=== PATIENT | female | born 1960 ===

== ENCOUNTER 2017-11-27 13:01 | Emergency (ER) | payer MEDICAID, OTHER ==
[2017-11-27 13:13] VITALS: BP 145/101; PULSE 95; RESP 20; TEMP 97.9; O2SAT 96
--- NOTE | 2017-11-27 13:49 | C.PDOC ---
History Of Present Illness Patient is a 57 y/o female who presents to the ED with a complaint of blisters to right sided chest wall and right sided abdomen for the last 3 days. Patient notes blisters cause burning sensation. No other physical complaints at this time. Time Seen by Provider: 11/27/17 13:18 Chief Complaint (Nursing): Abnormal Skin Integrity History Per: Patient History/Exam Limitations: no limitations Onset/Duration Of Symptoms: Days (3) Current Symptoms Are (Timing): Still Present Location Of Injury: Right: Abdomen, Chest Recent travel outside of the [place]: No Past Medical History Reviewed: Historical Data, Nursing Documentation, Vital Signs Vital Signs: Last Vital Signs Temp 97.9 F 11/27/17 13:10 Pulse 95 H 11/27/17 13:10 Resp 20 11/27/17 13:10 BP 145/101 H 11/27/17 13:10 Pulse Ox 96 11/27/17 13:49 - Medical History PMH: HTN, Hypercholesterolemia, Hypothyroidism Surgical History: Appendectomy Family History: States: No Known Family Hx - Social History Hx Tobacco Use: Yes (heavy smoker) Hx Alcohol Use: Yes Hx Substance Use: No - Immunization History Hx Tetanus Toxoid Vaccination: No Hx Influenza Vaccination: No Hx Pneumococcal Vaccination: No Review Of Systems Skin: Positive for: Other (blisters to right sided chest and right sided abdomen ) Physical Exam - Physical Exam Appears: No Acute Distress Skin: Other (clusters of blisters on erythamatous base, not crossing midline, on right side only) Oral Mucosa: Moist Chest: Symmetrical, No Deformity Cardiovascular: Rhythm Regular, No Murmur Respiratory: Normal Breath Sounds, No Rales, No Rhonchi, No Wheezing Neurological/Psych: Oriented x3, Normal Speech, Normal Cognition ED Course And Treatment O2 Sat by Pulse Oximetry: 96 Progress Note: Valtrex administered. Disposition - Disposition Disposition: HOME/ ROUTINE Disposition Time: 13:45 Condition: STABLE Additional Instructions: Follow up with PMD within 1-2 days. Return to ED if feel worse. Prescriptions: Gabapentin [Neurontin] 100 mg PO TID #30 capsule valACYclovir [Valtrex] 1 gm PO Q8 #21 tab Instructions: Shingles (DC) Forms: [employer] Connect (Citizen Of [place]) - Clinical Impression Clinical Impression: Herpes zoster - Scribe Statement The provider has reviewed the documentation as recorded by the Scribe Earnestine Jordan All medical record entries made by the Juan Luis were at my direction and personally dictated by me. I have reviewed the chart and agree that the record accurately reflects my personal performance of the history, physical exam, medical decision making, and the department course for this patient. I have also personally directed, reviewed, and agree with the discharge instructions and disposition.
== END 2017-11-27 13:56 | disposition home or self-care (01) ==
LOC: C.ER 13:01
DX: B02.9 Zoster without complications (principal)